=== PATIENT | female | born 1960 | race American Indian/Alaskan Native ===

== ENCOUNTER 2016-12-15 15:16 | Emergency (ER) | payer OTHER, MEDICAID ==
[2016-12-15 15:17] VITALS: BMI 30.7
[2016-12-15 15:28] VITALS: BP 177/97; PULSE 107; RESP 15; TEMP 98.4; O2SAT 97
--- NOTE | 2016-12-15 16:22 | C.PDOC ---
History Of Present Illness 56 yr old female presents to the ER with complaints of persistent left back pain since November 30. 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 Patient states she was seen and evaluated at [facility] with negative XRay and was given something with "codeine" in it and had limited relief. Patient states the pain is worse with movement and is on the left side of lower back. Patient denies chest pain, SOB, abdominal pain, diarrhea, dysuria , incontinence, weakness or numbness. Time Seen by Provider: 12/15/16 16:06 Chief Complaint (Nursing): Back Pain History Per: Patient History/Exam Limitations: no limitations Onset/Duration Of Symptoms: Days (November 30) Past Medical History Reviewed: Historical Data, Nursing Documentation, Vital Signs Vital Signs: Last Vital Signs Temp 98.4 F 12/15/16 15:27 Pulse 107 H 12/15/16 15:27 Resp 15 12/15/16 15:27 BP 177/97 H 12/15/16 15:27 Pulse Ox 97 12/15/16 16:24 - Medical History PMH: HTN Surgical History: Appendectomy Family History: States: CAD - Social History Hx Tobacco Use: No Hx Alcohol Use: No Hx Substance Use: No - Immunization History Hx Tetanus Toxoid Vaccination: No Hx Influenza Vaccination: Yes Hx Pneumococcal Vaccination: No Review Of Systems Except As Marked, All Systems Reviewed And Found Negative. Cardiovascular: Negative for: Chest Pain Respiratory: Negative for: Shortness of Breath Gastrointestinal: Negative for: Abdominal Pain, Diarrhea Genitourinary: Negative for: Dysuria, Incontinence Musculoskeletal: Positive for: Back Pain (Left sided back pain ) Neurological: Negative for: Weakness, Numbness Physical Exam - Physical Exam Appears: Well, Non-toxic, No Acute Distress Skin: Warm, Dry, Other (Old healing abrasion noted on the right knee.) Head: Atraumatic, Normacephalic Neck: Normal, Normal ROM, Supple Chest: Symmetrical, No Tenderness Cardiovascular: Rhythm Regular, No Murmur Respiratory: Normal Breath Sounds, No Rales, No Rhonchi, No Stridor, No Wheezing Back: Decreased ROM (Due to pain ) Extremity: Normal ROM, Capillary Refill (<2), No Deformity, No Swelling ED Course And Treatment O2 Sat by Pulse Oximetry: 97 Progress - Data Reviewed Data Reviewed: Old records Medical Decision Making Medical Decision Making: PLAN: * Flexeril PO * Motrin PO * Lidoderm TD Disposition - Disposition Referrals: your,pmd [Other] Disposition: HOME/ ROUTINE Disposition Time: 16:31 Condition: IMPROVED Prescriptions: Cyclobenzaprine [Flexeril] 10 mg PO TID #15 tab Lidocaine 5% [Lidoderm] 1 ea TD PRN PRN #10 patch PRN Reason: Pain, Moderate (4-7) Naproxen 500 mg PO BID #30 tab Instructions: Back Pain (ED) Forms: Work Excuse - Clinical Impression Clinical Impression: Low back pain - Scribe Statement The provider has reviewed the documentation as recorded by the Carmelo Man Provider Attestation: All medical record entries made by the Carmelo were at my direction and personally dictated by me. I have reviewed the chart and agree that the record accurately reflects my personal performance of the history, physical exam, medical decision making, and the department course for this patient. I have also personally directed, reviewed, and agree with the discharge instructions and disposition.
[2016-12-15] MEDS ORDERED: Lidocaine 5% Patch TD STA (16:24)
[2016-12-15] MEDS ORDERED: Lidocaine 5% Patch TD ONE (16:30)
== END 2016-12-15 16:35 | disposition home or self-care (01) ==
LOC: C.ER 15:16
DX: M54.5 Low back pain (principal)